=== PATIENT | female | born 1960 | race Caucasian/White ===

== ENCOUNTER 2022-07-11 11:09 | Emergency (ER) | payer BC, SELFPAY ==
[2022-07-11 11:23] VITALS: BP 148/81; PULSE 82; RESP 16; TEMP 37.1; O2SAT 100
--- NOTE | 2022-07-11 11:55 | ED.EYEPROB ---
HPI - Eye Problem General Chief complaint: Eye Problems Stated complaint: rt eye irritation Time Seen by Provider: 07/11/22 11:55 Source: patient Mode of arrival: ambulatory Limitations: no limitations History of Present Illness HPI Narrative: 62-year-old female presented for complaint of 1 episode of visual floaters that occurred 2 days ago. She states while she was sitting at her computer she saw a sunbeam in a [place] with flashing rays. ? She states she looked up from the iPad and looked away and could still see the floater for about 5-10 minutes. She describes them as occurring in the right eye frontal field. She states yesterday she called an Emergency Room who told her she should be evaluated ?if it is an emergency.? Since she was unsure if it was an emergency she held off for evaluation today. She denies associated eye pain, redness, loss of vision, tunnel vision or curtain/shade; she denies recent trauma, headaches, photophobia or foreign body. She states ?I have bad eyes? and states her contacts are not the right prescription but denies worsening blurred vision. She denies numbness, tingling or weakness to the face or extremities. Related Data Home Medications Medication Instructions Recorded Confirmed hydrochlorothiazide 12.5 mg capsule mg 07/11/22 Allergies Allergy/AdvReac Type Severity Reaction Status Date / Time Penicillins Allergy Rash Verified 07/11/22 11:16 Review of Systems Review of Systems: CONSTITUTIONAL: Denies body aches, fever, chills EYES:per HPI ENT: Denies rhinorrhea, congestion, sore throat, or otalgia. CARDIOVASCULAR: Denies chest pain, palpitations RESPIRATORY: Denies cough or dyspnea. GASTROINTESTINAL: Denies abdominal pain, nausea, vomiting, or diarrhea. SKIN: Denies rash, itching, or wounds. MUSCULOSKELETAL: Denies back pain, joint pain, or myalgia. NEUROLOGIC: Denies headache, numbness, tingling, or weakness. All systems reviewed & are unremarkable except as noted in HPI and below PMFSH Comments At time of signature, I have reviewed and agree with nursing past medical, surgical, social and family history unless otherwise noted. Please see nursing chart for further information. There is no relevant family history pertinent to the presenting complaint Exam Narrative: GENERAL: Well-appearing HEAD: Normocephalic, atraumatic. EYES: PERRLA, EOMI. No conjunctival injection, eye lid swelling or redness. Lid eversion showed no FB. ENT: Mucous membranes pink and moist. No rhinorrhea. TMs normal bilaterally. Throat normal. Uvula midline. CHEST: Clear to auscultation. HEART: Regular rate and rhythm. SKIN: Warm, dry, no rash. Normal skin turgor. NEURO: No focal deficits. Alert and oriented x3. PSYCH: Normal affect. Course Course Emergency Course: Patient is aware of diagnosis, understands and agrees to treatment plan. Anticipatory guidance given. Patient agrees to follow-up as directed and is aware of reasons to seek care at the emergency department. Portions of this record may have been created with voice recognition software Level of Care: Express Care Visit Vital Signs Vital signs: Vital Signs Temperature 98.8 F 07/11/22 11:23 Pulse Rate 82 07/11/22 11:23 Respiratory Rate 16 07/11/22 11:23 Blood Pressure 148/81 H 07/11/22 11:23 Pulse Oximetry 100 07/11/22 11:23 Temperature 98.8 F 07/11/22 11:23 Pulse Rate 82 07/11/22 11:23 Respiratory Rate 16 07/11/22 11:23 Blood Pressure 148/81 H 07/11/22 11:23 Pulse Oximetry 100 07/11/22 11:23 MDM - Eye Problem MDM Narrative Medical decision making narrative: Patient reported one episode of visual floaters that occurred 2 days ago. No recurrence of symptoms. Negative PE. Denies any associated symptoms per HPI. She has an appt with her PCP next week and plans to f/u with eye doctor in 2 days due to the weekend. She is advised at length of signs and symptoms to go to the ER, and i
== END 2022-07-11 12:21 | disposition home or self-care (01) ==
PROVIDERS: Emergency Provider Nurse Practitioner Family
DX: H43.391 Other vitreous opacities, right eye (principal)
CPT/HCPCS: 99211; G0463

== ENCOUNTER 2023-09-17 14:46 | Outpatient (CLI) | payer BC, SELFPAY ==
[2023-09-17 15:59] LABS: Glucose 175 mg/dL (70-99); Hemoglobin A1C 6.4 % (<5.7)
== END 2023-09-17 14:47 | disposition home or self-care (01) ==
DX: R73.09 Other abnormal glucose (principal)
CPT/HCPCS: 36415; 82947; 83036